=== PATIENT | female | born 1980 | race Caucasian/White ===

== ENCOUNTER → 2022-04-18 11:15 | Outpatient (CLI) | payer BC, SELFPAY ==
[2022-04-19 08:13] LABS: Progesterone 5.2 ng/mL (.)
== END ==
PROVIDERS: Visit Provider Obstetrics & Gynecology
DX: N76.0 Acute vaginitis (principal); Z31.69 Encounter for other general counseling and advice on procreation
CPT/HCPCS: 36415; 84144

== ENCOUNTER → 2022-04-22 09:58 | Outpatient (CLI) | payer BC, SELFPAY ==
[2022-04-23 10:12] LABS: Progesterone 6.7 ng/mL (.)
== END ==
PROVIDERS: Obstetrics & Gynecology; Visit Provider Obstetrics & Gynecology
DX: N76.0 Acute vaginitis (principal); Z31.69 Encounter for other general counseling and advice on procreation
CPT/HCPCS: 36415; 84144

== ENCOUNTER 2022-09-24 10:11 | Emergency (ER) | payer BC, SELFPAY ==
--- NOTE | 2022-09-24 10:17 | EXP.UTC ---
Discharge Plan Disposition Patient Disposition: Home, Self-Care Condition: Good Prescriptions Prescriptions: New azithromycin [Zithromax] 250 mg tablet 250 mg PO UD DOSE PK Qty: 6 0RF Rx Instructions: Take two (2) tablets today, then one (1) tablet days #2 thru #5 oseltamivir [Tamiflu] 75 mg capsule 75 mg PO BID Qty: 10 0RF methylprednisolone 4 mg Tablets,Dose Pack 4 mg PO DIRECTED Qty: 21 0RF ondansetron 4 mg Tablet,Disintegrating 4 mg PO Q8H PRN (Reason: Nausea) Qty: 12 0RF No Action escitalopram oxalate 20 mg tablet 30 mg PO doxepin 25 mg capsule 25 mg PO PRN (Reason: sleep) hydroxyzine pamoate 25 mg capsule 25 mg PO PRN (Reason: sleep) Label Comments: TAKE 1 TO 2 CAPSULES BY MOUTH THREE TIMES DAILY NEEDED FOR ANXIETY propranolol 10 mg tablet 10 mg PO ONCE Label Comments: TAKE 1 TABLET BY MOUTH TWICE DAILY NEEDED FOR ANXIETY Classic 28 mg iron- 800 mcg tablet 1 tab PO DAILY Qty: 30 11RF levofloxacin 500 mg tablet 500 mg PO DAILY Qty: 5 0RF Referrals Follow up/Referrals: Franchesca Parnell APRN [Primary Care Provider] - See instructions Activity Restrictions/Add. Instructions Additional Instructions/Restrictions: Drink plenty of fluids. Take tylenol or ibuprofen for pain or fever. Take the medications as directed. Follow up with your regular doctor. GO TO THE ER FOR ANY WORSENING SYMPTOMS Clinical Impressions Clinical Impression: Acute viral syndrome Stand Alone Forms Stand Alone Forms: Work/School Release Instructions Patient Instructions: DI for Influenza -- Adult, Oseltamivir Discharge ED Provider: Boy Maciel [facility] General Stated complaint: Bodyaches, chills, fever, nausea Time Seen by Provider: 09/24/22 10:17 History of Present Illness Provider Complaint: She states that since yesterday she has had fever, chills, body aches, n/v, dry cough and malaise. Related Data Home Medications Medication Instructions Recorded Confirmed doxepin 25 mg capsule 25 mg PO PRN sleep 03/31/22 08/11/22 escitalopram oxalate 20 mg tablet 30 mg PO 03/31/22 08/11/22 hydroxyzine pamoate 25 mg capsule 25 mg PO PRN sleep 03/31/22 08/11/22 propranolol 10 mg tablet 10 mg PO ONCE 03/31/22 08/11/22 Previous Rx's Medication Instructions Recorded vits no.126-ferrous fum 1 tab PO DAILY #30 tabs 04/02/22 28 mg iron-folic acid 800 mcg tablet (Classic ) levofloxacin 500 mg tablet 500 mg PO DAILY #5 tabs 08/14/22 azithromycin 250 mg tablet 250 mg PO UD DOSE PK #6 tabs 09/24/22 (Zithromax) methylprednisolone 4 mg tablets in 4 mg PO DIRECTED #21 tabs 09/24/22 a dose pack ondansetron 4 mg disintegrating 4 mg PO Q8H PRN Nausea #12 tabs 09/24/22 tablet oseltamivir 75 mg capsule (Tamiflu) 75 mg PO BID #10 caps 09/24/22 Allergies Allergy/AdvReac Type Severity Reaction Status Date / Time No Known Allergies Allergy Verified 09/24/22 10:30 [facility] Disclaimer: The information contained in this section may have been updated after the patient was seen, as this information can be updated by other users. Medical History Anxiety Vaginal discharge Social History Smoking Status: Never smoker alcohol intake: never substance use type: denies use current occupational status: employed Travel in the last 8 weeks: None ROS Obtained: Yes All systems reviewed & no additional complaints except as documented Constitutional Constitutional: Reports chills and Reports fever(s) Eyes Eyes: Denies eye discharge ENT Ears, Nose, Mouth, and Throat: Reports as per HPI Cardiovascular Cardiovascular: Denies chest pain Respiratory Respiratory: Denies chest congestion and Reports cough Gastrointestinal Gastrointestingal: Reports nausea; Denies abdominal pain, constipati
[2022-09-24 10:28] VITALS: BP 124/73; PULSE 67; RESP 16; TEMP 36.9; O2SAT 98; BMI 40.7
[2022-09-24 10:37] LABS: UTC Influenza A Antigen Negative (Negative); UTC Influenza B Antigen Negative (Negative); UTC Strep Screen (Rapid) Negative (Negative)
[2022-09-24 10:59] VITALS: BP 124/73; PULSE 67; RESP 16; TEMP 36.9
[2022-09-24 11:10] LABS: Bordetella Pertussis Not Detected (NotDetected); Chlamydophila Pneumoniae, PCR Not Detected (NotDetected); Coronavirus 19, PCR Not Detected (NotDetected); Coronavirus 229E Not Detected (NotDetected); Coronavirus NL63 Not Detected (NotDetected); Coronavirus OC43 Not Detected (NotDetected); Coronovirus HKU1,PCR Not Detected (NotDetected); Human Metapneumovirus Not Detected (NotDetected); Influenza A, PCR Not Detected (NotDetected); Influenza AH1, 2009 Not Detected (NotDetected); Influenza AH1, PCR Not Detected (NotDetected); Influenza AH3,PCR Not Detected (NotDetected); Influenza B, PCR Not Detected (NotDetected); Mycoplasma Pneumoniae, PCR Not Detected (NotDetected); Parainfluenza 1, PCR Not Detected (NotDetected); Parainfluenza 2, PCR Not Detected (NotDetected); Parainfluenza 3, PCR Not Detected (NotDetected); Parainfluenza 4, PCR Not Detected (NotDetected); Respiratory Syncytial Virus Not Detected (NotDetected); Rhinovirus/Enterovirus Not Detected (NotDetected)
[2022-09-24 14:20] LABS: Adenovirus,PCR Detected (NotDetected)
== END 2022-09-24 11:10 | disposition home or self-care (01) ==
PROVIDERS: Emergency Provider Nurse Practitioner Family; PCP Nurse Practitioner
DX: B34.9 Viral infection, unspecified (principal)
CPT/HCPCS: 87581; 87632; 87798; 87804; 87880; 99212; C9803; G0463; U0003; U0005

== ENCOUNTER 2023-09-30 15:01 | Emergency (ER) | payer BC, SELFPAY ==
[2023-09-30 15:02] VITALS: BP 131/86; PULSE 78; RESP 18; TEMP 37.7; O2SAT 98; BMI 40.4
--- NOTE | 2023-09-30 15:48 | EXP.UTC ---
Discharge Plan Disposition Patient Disposition: Home, Self-Care Condition: Good Prescriptions Prescriptions: No Action escitalopram oxalate 20 mg tablet 30 mg PO doxepin 25 mg capsule 25 mg PO PRN (Reason: sleep) hydroxyzine pamoate 25 mg capsule 25 mg PO PRN (Reason: sleep) Patient Comments: TAKE 1 TO 2 CAPSULES BY MOUTH THREE TIMES DAILY NEEDED FOR ANXIETY propranolol 10 mg tablet 10 mg PO ONCE Patient Comments: TAKE 1 TABLET BY MOUTH TWICE DAILY NEEDED FOR ANXIETY levofloxacin 500 mg tablet 500 mg PO DAILY Qty: 5 0RF Classic 28 mg iron- 800 mcg tablet 1 tab PO DAILY Qty: 30 11RF azithromycin [Zithromax] 250 mg tablet 250 mg PO UD DOSE PK Qty: 6 0RF Rx Instructions: Take two (2) tablets today, then one (1) tablet days #2 thru #5 oseltamivir [Tamiflu] 75 mg capsule 75 mg PO BID Qty: 10 0RF methylprednisolone 4 mg Tablets,Dose Pack 4 mg PO DIRECTED Qty: 21 0RF ondansetron 4 mg Tablet,Disintegrating 4 mg PO Q8H PRN (Reason: Nausea) Qty: 12 0RF Referrals Follow up/Referrals: Franchesca Parnell APRN [Primary Care Provider] - See instructions Activity Restrictions/Add. Instructions Additional Instructions/Restrictions: *Monitor Temp, Over the counter Motrin or Tylenol as directed/as needed Tylenol every 4 hours and Motrin every 6 hours (as long as your family doctor has told you that you can take it) for fever or pain. and straight to ER if unable to lower temp less than 101.0 after medication given *Warm salt water gargles may help to soothe the throat *Throat Lozenges? *Warm fluids like tea with honey may help to soothe the throat? *Sleep elevated *Humidifier/Vaporizer You was given out patient order for diarrhea panel Please collect specimen and bring back to out patient lab and follow up with your Family Doctor Follow up IMMEDIATELY for new or worsening symptoms or no Noticeable improvement over the next 48-72 hours. 911 for difficulty breathing or swallowing You were tested for today for ?Upper Respiratory Panel with COVID19 your test result should be back in the next 24hours, you may check your results on the [facility] My Health Portal if you are COVID positive then you must Quarantine for 5 days Clinical Impressions Clinical Impression: Acute viral syndrome Stand Alone Forms Stand Alone Forms: Work/School Release Instructions Patient Instructions: Diarrhea, DI for Viral Syndrome Discharge ED Provider[place] [facility] [place] General Stated complaint: fever, diarreah , upset stomach, exhaustion Mode of Arrival: Ambulatory Source of Information: Patient Limitations: No Limitations Time Seen by Provider: 09/30/23 15:48 Description of Symptoms (Recalled from Triage Doc. by RN): Patient reports fever, headache, upset stomach, diarrhea, exhaustion for 2 weeks. HEENT Symptoms (Recalled from RN notes): Yes Resp Symptoms (Recalled from RN notes): No Skin Symptoms (Recalled from RN notes): No MS Symptoms (Recalled from RN notes): No Functional Status (Recalled from RN notes): wnl History of Present Illness Provider Complaint: Patient states that she was sick about 2 weeks ago with something similar States that she seen her PCP then and was tested for flu and COVID and they was negative and seh was dx with virus States that she was feeling better but then yesterday she started with symptoms again with fever, headache, upset stomach diarrhea and feeling tired and achy all over States that earlier she started again with diarrhea so she came in Related Data Home Medications Medication Instructions Recorded Confirmed doxepin 25 mg capsule 25 mg PO PRN sleep 03/31/22 08/11/22 escitalopram oxalate 20 mg tablet 30 mg PO 03/31/22 08/11/22 hydroxyzine pamoate 25 mg capsule 25 mg PO PRN sleep 03/31/22 08/11/22 propranolol 10 mg tablet 10 mg PO ONCE 03/31/22 08/11/22 Previous Rx's Medication Instructions Recorded levofloxacin 500 mg tablet 500 mg PO DAILY #5 tabs 08/14/22 azithromycin 250 mg tablet 250 mg PO UD DOSE PK #6 tabs 09/24/22 (Zithromax) methylprednisolone 4 mg tablets in 4 mg PO DIRECTED #21 tabs 09/24/22 a dose pack ondansetron 4 mg disintegrating 4 mg PO Q8H PRN Nausea #12 tabs 09/24/22 tablet oseltamivir 75 mg capsule (Tamiflu) 75 mg PO BID #10 caps 09/24/22 vits no.126-ferrous fum 1 tab PO DAILY #30 tabs 04/14/23 28 mg iron-folic acid 800 mcg tablet (Classic ) Allergies Allergy/AdvReac Type Severity Reaction Status Date / Time No Known Allergies Allergy Verified 09/24/22 10:30 Worker's Comp Is this a Worker's Comp case?: No [facility] Disclaimer: The information contained in this section may have been updated after the patient was seen, as this information can be updated by other users. Medical History Anxiety Vaginal discharge Social History Smoking Status: Never smoker alcohol intake: never substance use type: denies use current occupational status: employed Travel in the last 8 weeks: None ROS Obtained: Yes All systems reviewed & no additional complaints except as documented and Yes Systems reviewed as appropriate & no additional complaints except as documented Constitutional Constitutional: Reports system reviewed and no additional complaints, except as documented, Reports as per HPI, Reports body ache, Reports chills, Reports fever(s) and Reports headache(s) ENT Ears, Nose, Mouth, and Throat: Reports system reviewed and no additional complaints, except as documented, Reports as per HPI and Reports headache(s) Cardiovascular Cardiovascular: Reports system reviewed and no additional complaints, except as documented and Reports as per HPI Respiratory Respiratory: Reports system reviewed and no additional complaints, except as documented and Reports as per HPI Gastrointestinal Gastrointestingal: Reports system reviewed and no additional complaints, except as documented, as per HPI, diarrhea and vomiting; Denies abdominal pain or cramping Genitourinary Female Genitourinary: Reports system reviewed and no additional complaints, except as documented and Reports as per HPI Neurologic Neurologic: Reports headache(s) Physical Exam General General appearance: alert and in no apparent distress ENT ENT exam: Present mucous membranes moist Expanded ENT Exam Nose exam: Absent sinus tenderness Throat exam: Present normal inspection Respiratory Respiratory exam: Present normal lung sounds bilaterally; Absent respiratory distress or wheezes Cardiovascular Cardiovascular exam: Present regular rate, normal rhythm and normal heart sounds Abdominal Exam Abdominal exam: Present soft and normal bowel sounds; Absent distention or tenderness Neurological Exam Neurological exam: Present alert, oriented X3 and normal gait Medical Decision Making Yung Inquiry Pt receiving controlled substance: No Yung was queried for this patient: No Vital Signs: 09/30/23 15:02 Temperature 99.8 F H Temperature Source Oral Pulse Rate [Radial] 78 Respiratory Rate 18 Blood Pressure [Right Arm] 131/86 Blood Pressure Mean [Right Arm] 101 Blood Pressure Source [Right Arm] Automatic Cuff Blood Pressure Position [Right Arm] Sitting 02 Sat by Pulse Oximetry 98 Oxygen Delivery Method Room Air
[2023-09-30 16:02] LABS: UTC Influenza A Antigen Negative (Negative); UTC Influenza B Antigen Negative (Negative)
[2023-09-30 16:18] VITALS: BP 131/86; PULSE 78; RESP 18; TEMP 37.7; O2SAT 98
[2023-09-30 17:11] LABS: Adenovirus,PCR Not Detected (NotDetected); Coronavirus 19, PCR Not Detected (NotDetected); Coronavirus 229E Not Detected (NotDetected); Coronavirus NL63 Not Detected (NotDetected); Coronavirus OC43 Not Detected (NotDetected); Coronovirus HKU1,PCR Not Detected (NotDetected); Human Metapneumovirus Not Detected (NotDetected); Influenza A, PCR Not Detected (NotDetected); Influenza AH1, 2009 Not Detected (NotDetected); Influenza AH1, PCR Not Detected (NotDetected); Influenza AH3,PCR Not Detected (NotDetected); Influenza B, PCR Not Detected (NotDetected); Parainfluenza 1, PCR Not Detected (NotDetected); Parainfluenza 2, PCR Not Detected (NotDetected); Parainfluenza 3, PCR Not Detected (NotDetected); Parainfluenza 4, PCR Not Detected (NotDetected); Respiratory Syncytial Virus Not Detected (NotDetected); Rhinovirus/Enterovirus Not Detected (NotDetected)
== END 2023-09-30 16:18 | disposition home or self-care (01) ==
PROVIDERS: Emergency Provider Nurse Practitioner; PCP Nurse Practitioner
DX: R51.9 Headache, unspecified (principal); R50.9 Fever, unspecified; R11.0 Nausea; R19.7 Diarrhea, unspecified; M79.18 Myalgia, other site; R53.83 Other fatigue; B34.9 Viral infection, unspecified
CPT/HCPCS: 87632; 87635; 87804; 99212; 99213; 99214; G0463